=== PATIENT | male | born 1990 | race Two or more races ===

== ENCOUNTER 2021-04-25 11:36 | Emergency (ER) | payer MEDICAID ==
[~2021-04-25] VITALS: Ht 177.8 cm; Wt 84.5 kg
[2021-04-25 11:53] VITALS: BP 94/73
[2021-04-25] MEDS ORDERED: ketorolac trometh. 30mg/ml inj. IM ONE (14:00)
[2021-04-25] MEDS ORDERED: CYCL-1 PO (14:06)
== END 2021-04-25 14:35 | disposition home or self-care (01) ==
LOC: ER 11:37
DX: S16.1XXA Strain of muscle, fascia and tendon at neck level, initial encounter (principal); M54.2 Cervicalgia; Z79.899 Other long term (current) drug therapy; X58.XXXA Exposure to other specified factors, initial encounter; Y93.89 Activity, other specified; Y92.89 Other specified places as the place of occurrence of the external cause; Y99.8 Other external cause status
CPT/HCPCS: 96372; 99283; J1885